=== PATIENT | male | born 1980 | race American Indian/Alaskan Native ===

== ENCOUNTER 2020-07-17 19:28 | Emergency (ER) | payer OTHER ==
[2020-07-17] MEDS ORDERED: ONDANSETRON 4 MG ODT TAB PO ONE (21:43)
[2020-07-17] MEDS ORDERED: FAMOTIDINE 20 MG TAB PO ONE (21:43)
--- NOTE | 2020-07-17 21:53 | Emergency Department Report ---
ED N/V/D HPI - General Chief complaint: Nausea/Vomiting/Diarrhea Stated complaint: PERSISTENT HICCUPS/NAUSEA Source: patient Mode of arrival: Ambulatory Limitations: No Limitations - History of Present Illness Initial comments: Patient is a 40-year-old -Tog[place] male with a history of SLE and interstitial lung disease who presents to the ED with complaint of acute onset persistent intermittent hiccups, nausea and persistent belching for the last 2 days. Patient states that he has been taking dexamethasone the last 5 days for a flare of his SLE. Patient states that the nausea and the hiccups as well as the belching has been persistent and intermittent worse in the last 12 hours. Patient states that he try to take omeprazole with no relief. Patient denies chest pain, shortness of breath, dizziness, syncope, abdominal pain, vomiting, hematemesis, hemoptysis, sore throat, headache, fever and chills, diarrhea or headache and palpitations. MD complaint: nausea, other (dyspepsia; hiccups) -: Sudden, days(s) (2) Description of Vomiting: food contents Associated Abdominal Pain: No Location: epigastric Radiation: none Severity: moderate Pain Scale: 3 Quality: dull Consistency: intermittent Improves with: none Worsens with: none Associated Symptoms: denies other symptoms, nausea/vomiting. denies: myalgias, chest pain, cough, diaphoresis, fever/chills, headaches, loss of appetite, rash, dysuria, shortness of breath, syncope, weakness - Related Data Previous Rx's Medication Instructions Recorded Last Taken Type Albuterol Mdi (or & Nicu Only) 2 puff IH QID PRN #1 inhalation 07/09/18 Unknown Rx [ProAir HFA Inhaler] predniSONE [Deltasone] 20 mg PO QDAY #5 tab 07/09/18 Unknown Rx Famotidine [Pepcid] 20 mg PO BID #60 tablet 07/17/20 Unknown Rx Ondansetron HCl [Zofran] 4 mg PO Q6H PRN #20 tablet 07/17/20 Unknown Rx Pantoprazole [Protonix] 40 mg PO QDAY #30 tablet 07/17/20 Unknown Rx Allergies Allergy/AdvReac Type Severity Reaction Status Date / Time acetaminophen [From Vicodin] Allergy Rash Verified 07/08/18 22:49 diclofenac Allergy Anaphylaxis Verified 07/08/18 22:49 hydrocodone [From Vicodin] Allergy Rash Verified 07/08/18 22:49 ED Review of Systems ROS: Stated complaint: PERSISTENT HICCUPS/NAUSEA Other details as noted in HPI Constitutional: denies: chills, fever Eyes: denies: eye pain, eye discharge, vision change ENT: denies: ear pain, throat pain Respiratory: denies: cough, shortness of breath, wheezing Cardiovascular: denies: chest pain, palpitations Endocrine: no symptoms reported Gastrointestinal: nausea, other (Hiccups and belching). denies: abdominal pain, diarrhea Genitourinary: denies: urgency, dysuria Musculoskeletal: denies: back pain, joint swelling, arthralgia Skin: denies: rash, lesions Neurological: denies: headache, weakness, paresthesias Psychiatric: denies: anxiety, depression Hematological/Lymphatic: denies: easy bleeding, easy bruising ED Past Medical Hx - Past Medical History Previous Medical History?: Yes Additional medical history: lupus, Interstitial Lung disease. neuropathy - Surgical History Past Surgical History?: No - Social History Smoking Status: Never Smoker Substance Use Type: None - Medications Home Medications: Home Medications Medication Instructions Recorded Confirmed Last Taken Type Albuterol Mdi (or & Nicu Only) 2 puff IH QID PRN #1 inhalation 07/09/18 Unknown Rx [ProAir HFA Inhaler] predniSONE [Deltasone] 20 mg PO QDAY #5 tab 07/09/18 Unknown Rx Famotidine [Pepcid] 20 mg PO BID #60 tablet 07/17/20 Unknown Rx Ondansetron HCl [Zofran] 4 mg PO Q6H PRN #20 tablet 07/17/20 Unknown Rx Pantoprazole [Protonix] 40 mg PO QDAY #30 tablet 07/17/20 Unknown Rx ED Physical Exam - General Limitations: No Limitations General appearance: alert, in no apparent distress - Head Head exam: Present: atraumatic, normocephalic, normal inspection - Eye Eye exam: Present: normal appearance, PERRL, EOMI Pupils: Present: normal accommodation - ENT ENT exam: Present: normal exam, normal orophraynx, mucous membranes moist, TM's normal bilaterally, normal external ear exam - Neck Neck exam: Present: normal inspection, full ROM - Respiratory Respiratory exam: Present: normal lung sounds bilaterally. Absent: respiratory distress, wheezes, rales, stridor, chest wall tenderness, decreased breath sounds, prolonged expiratory - Cardiovascular Cardiovascular Exam: Present: regular rate, normal rhythm, normal heart sounds. Absent: systolic murmur, diastolic murmur, rubs, gallop - GI/Abdominal GI/Abdominal exam: Present: soft, normal bowel sounds. Absent: tenderness, guarding, rebound, hyperactive bowel sounds, hypoactive bowel sounds, organomegaly, mass - Extremities Exam Extremities exam: Present: normal inspection, full ROM, normal capillary refill - Back Exam Back exam: Present: normal inspection, full ROM. Absent: tenderness, CVA tenderness (R), CVA tenderness (L), muscle spasm, paraspinal tenderness, vertebral tenderness, rash noted - Neurological Exam Neurological exam: Present: alert, oriented X3, CN II-XII intact, normal gait, reflexes normal - Psychiatric Psychiatric exam: Present: normal affect, normal mood - Skin Skin exam: Present: warm, dry, intact, normal color. Absent: rash ED Course Vital Signs 07/17/20 07/17/20 20:50 23:02 Temperature 98.5 F Pulse Rate 69 60 Respiratory 16 16 Rate Blood Pressure 110/60 Blood Pressure 112/64 [Right] O2 Sat by Pulse 100 99 Oximetry ED Medical Decision Making - Medical Decision Making This is a 40-year-old -Togol[place] male with a history of SLE and interstitial lung disease who presents to the ED with complaint of acute onset persistent intermittent hiccups, nausea and persistent belching for the last 2 days. Patient states that he has been taking dexamethasone the last 5 days for a flare of his SLE. Patient states that the nausea and the hiccups as well as the belching has been persistent and intermittent worse in the last 12 hours. Patient states that he try to take omeprazole with no relief. In the ED, patient is alert and oriented x3 and is not in distress with normal vital signs. Patient was treated with antacids and antiemetics in the ED. On reevaluation, patient symptoms resolved medications. Patient will discharge home on medications and advised to follow-up with his primary care physician in 3 to 5 days for reevaluation or return to the ED immediately if symptoms get worse. - Differential Diagnosis GERD; Dyspepsia; Gastroenteritis; Esophagral spasm; Anxiety Critical care attestation.: If time is entered above; I have spent that time in minutes in the direct care of this critically ill patient, excluding procedure time. ED Disposition Clinical Impression: Hiccups, Nausea and vomiting in adult patient GERD (gastroesophageal reflux disease) Qualifiers: Esophagitis presence: without esophagitis Qualified Code(s): K21.9 - Gastro-esophageal reflux disease without esophagitis Disposition: TO HOME OR SELFCARE Is pt being admited?: No Does the pt Need Aspirin: No Condition: Stable Instructions: Indigestion, [id number], Nausea and Vomiting, Adult, [id number], Gastroesophageal Reflux Disease, Adult, [id number] Additional Instructions: Take medications with food, drink plenty of fluids and follow up with your Primary care physician in 3-5 days for reevaluation. Return to the ED immediately if symptoms get worse. Prescriptions: Famotidine [Pepcid] 20 mg PO BID #60 tablet Pantoprazole [Protonix] 40 mg PO QDAY #30 tablet Ondansetron HCl [Zofran] 4 mg PO Q6H PRN #20 tablet PRN Reason: Nausea Referrals: [facility] [Provider Group] - 7-10 days Time of Disposition: 21:47 Print Language: CZECH
[2020-07-17 23:03] VITALS: BP 112/64
== END 2020-07-17 23:03 | disposition home or self-care (01) ==
LOC: ED 19:28
DX: K21.9 Gastro-esophageal reflux disease without esophagitis (principal); R11.2 Nausea with vomiting, unspecified; R06.6 Hiccough; Z79.899 Other long term (current) drug therapy; Z88.8 Allergy status to other drugs, medicaments and biological substances
CPT/HCPCS: 99282; Q0162

== ENCOUNTER 2020-08-26 19:28 | Emergency (ER) | payer OTHER ==
--- NOTE | 2020-08-26 19:50 | Event Note ---
ED Screening Note Date of service: 08/26/20 Time: 19:35 ED Screening Note: Patient is a 40 yo AA male with a h/o SLE and Interstitial Lung disease who presents to the ED with c/o acute onset persistent diffuse chest pain that radiates to the posterior mid thoracic area intermittently for the last 2 months, worse in the last 1 week. Patient states that the pain gets worse with exertion and any movements or cough. Patient denies dizziness, cough, abdominal pain, nausea, vomiting, diarrhea, headache, traumatic injury or fall and heavy lifting and neck pain, dysuria, hematuria or hemoptysis. This initial assessment/diagnostic orders/clinical plan/treatment(s) is/are subject to change based on patients health status, clinical progression and re- assessment by fellow clinical providers in the ED. Further treatment and workup at subsequent clinical providers discretion. Patient/guardian urged not to elope from the ED as their condition may be serious if not clinically assessed and managed. Initial orders include: EKG, CBC, CMP, Troponin, BNP, CXR
--- NOTE | 2020-08-26 20:23 | XRay Report ---
CHEST 1 VIEW INDICATION: chest pain COMPARISON: 07/09/2018 FINDINGS: Support devices: None Heart: Normal and unchanged Lungs/Pleura: No acute pulmonary or pleural findings. IMPRESSION: 1. No acute disease and no interval change. Signer Name: Brad Bender MD Signed: 08/26/2020 8:19 PM Workstation Name: My Team [id number]
[2020-08-26 20:27] LABS: Hematocrit 44.6 % (35.5-45.6); Hemoglobin 14.7 gm/dl (11.8-15.2); Mean Corpuscular HGB Conc 33 % (32-34); Mean Corpuscular Volume 94 fl (84-94); Platelet Count 280 K/mm3 (140-440); Red Blood Count 4.75 M/mm3 (3.65-5.03); Red Cell Distribution Width 13.6 % (13.2-15.2)
[2020-08-26 20:50] LABS: Alanine Aminotransferase 27 units/L (7-56); Albumin 4.4 g/dL (3.9-5); BUN/Creatinine Ratio 18; Blood Urea Nitrogen 16 mg/dL (9-20); Calcium 9.2 mg/dL (8.4-10.2); Hemolysis Index 30
[2020-08-26] MEDS ORDERED: FAMOTIDINE 20 MG TAB PO ONE (21:05)
[2020-08-26] MEDS ORDERED: SUCRALFATE 1 GM/10 ML ORAL LIQD PO ONE (21:05)
--- NOTE | 2020-08-26 21:06 | Emergency Department Report ---
ED General Adult HPI - General Chief complaint: Chest Pain Stated complaint: CHEST PAIN/BACK PAIN/SOB PUI?: No Time Seen by Provider: 08/26/20 20:41 Source: patient, RN notes reviewed, old records reviewed Mode of arrival: Ambulatory Limitations: No Limitations - History of Present Illness Initial comments: The patient was evaluated in the emergency department for symptoms described in the history of present illness. He/she was evaluated in the context of the global COVID-19 pandemic, which necessitated consideration that the patient might be at risk for infection with the virus that causes COVID-19. Institutional protocols and algorithms that pertain to the evaluation of patients at risk for COVID-19 are in a state of rapid change based on information released by regulatory bodies including the CDC and federal and s berger organizations. These policies and algorithms were followed during the patient's care in the emergency department. Please note that these policies, procedures and recommendations changed on a rapid basis. The patient is a 40-year-old gentleman. He reports a history of lupus, and interstitial lung disease. All of his providers are at [facility]. He does not have a personal or family history of ischemic heart disease, pulmonary embolism, or DVT. The patient presents to the ER today with a complaint of a few months of intermittent chest discomfort. The chest discomfort is described as tightness, sometimes right-sided, sometimes left-sided, sometimes central. It occasionally radiates to the back. There is no vomiting, diaphoresis, and to me, the patient denies exertional shortness of breath. He also specifically denies that the pain radiates to his lower back. The patient denies travel, surgery, leg pain, leg swelling, oral contraceptive use. The patient denies fever, loss of taste or smell, recent aspirin consumption. The patient is ambidextrous, and denies recent trauma, repetitive ranges of motion. He came in today not because his pain is worse, but simply because "I am tired of dealing with it, I want to find out what it is." -: Sudden, week(s), month(s) Location: chest Radiation: back Quality: aching Consistency: intermittent Improves with: none Worsens with: none - Related Data Previous Rx's Medication Instructions Recorded Last Taken Type Albuterol Mdi (or & Nicu Only) 2 puff IH QID PRN #1 inhalation 07/09/18 Unknown Rx [ProAir HFA Inhaler] predniSONE [Deltasone] 20 mg PO QDAY #5 tab 07/09/18 Unknown Rx Famotidine [Pepcid] 20 mg PO BID #60 tablet 07/17/20 Unknown Rx Ondansetron HCl [Zofran] 4 mg PO Q6H PRN #20 tablet 07/17/20 Unknown Rx Pantoprazole [Protonix] 40 mg PO QDAY #30 tablet 07/17/20 Unknown Rx Allergies Allergy/AdvReac Type Severity Reaction Status Date / Time acetaminophen [From Vicodin] Allergy Rash Verified 07/08/18 22:49 celecoxib [From Celebrex] Allergy Anaphylaxis Verified 08/26/20 19:46 hydrocodone [From Vicodin] Allergy Rash Verified 07/08/18 22:49 ED Review of Systems ROS: Stated complaint: CHEST PAIN/BACK PAIN/SOB Other details as noted in HPI Constitutional: denies: fever Eyes: denies: eye discharge ENT: denies: epistaxis Respiratory: denies: cough, shortness of breath, wheezing Cardiovascular: chest pain Gastrointestinal: denies: abdominal pain, vomiting, hematemesis, melena, hematochezia Genitourinary: denies: dysuria Musculoskeletal: denies: back pain Neurological: denies: weakness Hematological/Lymphatic: denies: easy bleeding ED Past Medical Hx - Past Medical History Previous Medical History?: Yes Additional medical history: lupus, Interstitial Lung disease. neuropathy - Surgical History Past Surgical History?: No - Social History Smoking Status: Never Smoker Substance Use Type: None - Medications Home Medications: Home Medications Medication Instructions Recorded Confirmed Last Taken Type Albuterol Mdi (or & Nicu Only) 2 puff IH QID PRN #1 inhalation 07/09/18 Unknown Rx [ProAir HFA Inhaler] predniSONE [Deltasone] 20 mg PO QDAY #5 tab 07/09/18 Unknown Rx Famotidine [Pepcid] 20 mg PO BID #60 tablet 07/17/20 Unknown Rx Ondansetron HCl [Zofran] 4 mg PO Q6H PRN #20 tablet 07/17/20 Unknown Rx Pantoprazole [Protonix] 40 mg PO QDAY #30 tablet 07/17/20 Unknown Rx ED Physical Exam - General Limitations: No Limitations General appearance: alert, in no apparent distress - Head Head exam: Present: atraumatic, normocephalic - Eye Eye exam: Present: normal appearance, EOMI. Absent: nystagmus - ENT ENT exam: Present: normal exam, normal orophraynx, mucous membranes moist, normal external ear exam - Neck Neck exam: Present: normal inspection, full ROM. Absent: tenderness, meningismus - Respiratory Respiratory exam: Present: normal lung sounds bilaterally, chest wall tender ness. Absent: respiratory distress, wheezes, rales, rhonchi, stridor - Cardiovascular Cardiovascular Exam: Present: regular rate, normal rhythm, normal heart sounds. Absent: bradycardia, tachycardia, irregular rhythm, systolic murmur, diastolic murmur, rubs, gallop - GI/Abdominal GI/Abdominal exam: Present: soft. Absent: distended, tenderness, guarding, rebound, rigid, pulsatile mass - Rectal Rectal exam: Present: deferred - Extremities Exam Extremities exam: Present: normal inspection, full ROM, other (2+ pulses noted in the bilateral upper and lower extremities. There is no palpable cord. negative Homans sign. Muscular compartments are soft. The pelvis is stable.). Absent: pedal edema, calf tenderness - Back Exam Back exam: Present: normal inspection, full ROM. Absent: tenderness, CVA tenderness (R), CVA tenderness (L), paraspinal tenderness, vertebral tenderness - Neurological Exam Neurological exam: Present: alert, oriented X3, other (No facial droop. Tongue midline. Extraocular movements intact bilaterally. Facial sensation intact to light touch in V1, V2, V3 distribution bilaterally. 5 and a 5 strength in 4 extremities. Sensation intact to light touch in 4 extremities.). Absent: motor sensory deficit - Psychiatric Psychiatric exam: Present: normal affect, normal mood - Skin Skin exam: Present: warm, dry, intact, normal color. Absent: rash ED Course Vital Signs 08/26/20 19:42 Temperature 98.2 F Pulse Rate 82 Respiratory 17 Rate Blood Pressure 117/56 O2 Sat by Pulse 95 Oximetry ED Medical Decision Making - Lab Data Result diagrams: 08/26/20 19:52 08/26/20 19:52 Vital Signs 08/26/20 19:42 Temperature 98.2 F Pulse Rate 82 Respiratory 17 Rate Blood Pressure 117/56 O2 Sat by Pulse 95 Oximetry Lab Results 08/26/20 08/26/20 Range/Units 19:52 19:52 WBC 5.2 (4.5-11.0) K/mm3 RBC 4.75 (3.65-5.03) M/mm3 Hgb 14.7 (11.8-15.2) gm/dl Hct 44.6 (35.5-45.6) % MCV 94 (84-94) fl MCH 31 (28-32) pg MCHC 33 (32-34) % RDW 13.6 (13.2-15.2) % Plt Count 280 (140-440) K/mm3 [facility] % (Auto) Geophysics Teacher Sodium 138 (137-145) mmol/L Potassium 4.2 (3.6-5.0) mmol/L Chloride 103.3 (98-107) mmol/L Carbon Dioxide 26 (22-30) mmol/L Anion Gap 13 mmol/L BUN 16 (9-20) mg/dL Creatinine 0.9 (0.8-1.3) mg/dL Estimated GFR > 60 ml/min BUN/Creatinine Ratio 18 % Glucose 87 (75-100) mg/dL Calcium 9.2 (8.4-10.2) mg/dL Total Bilirubin 0.30 (0.1-1.2) mg/dL AST 24 (5-40) units/L ALT 27 (7-56) units/L Alkaline Phosphatase 57 (35-129) units/L Troponin T < 0.010 (0.00-0.029) ng/mL NT-Pro-B Natriuret Pep < 5 (0-450) pg/mL Total Protein 7.0 (6.3-8.2) g/dL Albumin 4.4 (3.9-5) g/dL Albumin/Globulin Ratio 1.7 % - EKG Data -: EKG Interpreted by Ar EKG shows normal: sinus rhythm Rate: normal - EKG Data When compared to previous EKG there are: no significant change Interpretation: no acute changes, unchanged when compared t 08/26/20 22:00 EKG today is unchanged from prior EKG from July 2018. Sinus rhythm, 67 bpm, normal axis, borderline high left ventricular voltage, QTC within normal limits, intervals within normal limits. The EKG is not a STEMI. - Radiology Data Radiology results: pending, report reviewed, image reviewed CHEST 1 VIEW INDICATION: chest pain COMPARISON: 07/09/2018 FINDINGS: Support devices: None Heart: Normal and unchanged Lungs/Pleura: No acute pulmonary or pleural findings. IMPRESSION: 1. No acute disease and no interval change. Signer Name: Brad Bender MD Signed: 08/26/2020 7:19 PM Workstation Name: [id number] - Medical Decision Making Differential diagnosis, including but not limited to: GERD, gastritis, hiatal hernia, pneumonia, costochondritis, pericarditis, myocarditis, pleurisy, coronary artery disease Assessment and plan: 40-year-old gentleman, who is not currently tachycardic, tachypneic or hypoxic, who denies DVT and pulmonary embolism risk factors (history of lupus appreciated), who is low risk by Wells criteria for pulmonary embolism, PERC negative, EKG unchanged from prior, troponin negative x1 in the context of weeks/months of symptomatology, acute myocardial infarction is excluded/ruled out as per the [employer] clinical policy, also, given lack of tachycardia, negative troponin, myopericarditis is unlikely. Patient has equal pulses in the upper and lower extremities, no pulsatile abdominal mass, and an unremarkable x-ray of the chest, therefore, aortic d isease is very unlikely. Patient at low risk for major adverse cardiac event as per heart score. Given reproducibility, history and physical, Pneumonia is unlikely given history, physical, and x-ray findings. I find coronary artery disease of significance to be unlikely. As per this institutions policy, procedure, protocol, patient's information is transmitted to [facility] cardiology, whereby patient should be contacted within the next 2 days to arrange close outpatient follow-up Have discussed this plan of care with patient, who verbalized understanding, and is amenable to this plan of care. On multiple repeat evaluations, talking and playing on his cell phone, does not appear to be in any acute distress, and is amenable to outpatient follow-up. Critical care attestation.: If time is entered above; I have spent that time in minutes in the direct care of this critically ill patient, excluding procedure time. ED Disposition Clinical Impression: History of chest pain Disposition: DC-01 TO HOME OR SELFCARE Is pt being admited?: No Does the pt Need Aspirin: No Condition: Stable Instructions: Nonspecific Chest Pain, Adult Additional Instructions: Please continue current outpatient medications. Please follow-up with a split leather mosser within the next 3 to 5 days. Please return to the emergency room right away with new pain, worsened pain, migration of pain, projectile vomiting, change in mental status, confusion, inability to tolerate liquid feeds, new, worsened or different symptoms not present on the initial emergency room evaluation Patient's contact information was transmitted to [facility] cardiology, to arrange close outpatient follow-up. Dr. Ciera Lopes is a split leather mosser in this practice, and the cardiology group should be reaching out to the patient within the next day or 2 to arrange outpatient follow-up. However, we do recommend that the patient contact the listed group on his own, to confirm outpatient appointment. Alternatively, the patient may also elect to follow-up with [facility] cardiology, such as Dr. Barajas, if he so chooses Referrals: HADLEY LOPES MD [Staff Physician] - 3-5 Days ADAN BARAJAS MD [Staff Physician] - 3-5 Days [facility] [Provider Group] - 3-5 Days Forms: Work/School Release Form(ED)
[2020-08-26 22:09] VITALS: BP 115/72
[2020-08-26 22:27] LABS: Total Cells Counted 100
[2020-08-26 22:28] LABS: Platelet Estimate Consistent w Auto
== END 2020-08-26 22:10 | disposition home or self-care (01) ==
LOC: ED 19:28
DX: R07.89 Other chest pain (principal); Z79.899 Other long term (current) drug therapy; Z88.8 Allergy status to other drugs, medicaments and biological substances
CPT/HCPCS: 36415; 71046; 80053; 83880; 84484; 85007; 85025; 93005

== ENCOUNTER 2020-10-16 11:25 | Emergency (ER) | payer SELFPAY ==
[2020-10-16 11:39] VITALS: BP 121/58
--- NOTE | 2020-10-16 12:22 | Event Note ---
ED Screening Note ED Screening Note: right sided CP that began a couple of days ago states he has pain with movement and sitting up straight and bending over no fever no n/v/d no radiation of the pain no SOB pmhx lupus, interstitial lung disease, neuropathy, HLD non smoker no recent surgery, no recent travel This initial assessment/diagnostic orders/clinical plan/treatment(s) is/are subject to change based on patients health status, clinical progression and re- assessment by fellow clinical providers in the ED. Further treatment and workup at subsequent clinical providers discretion. Patient/guardian urged not to elope from the ED as their condition may be serious if not clinically assessed and managed. Initial orders include: cp protocol
--- NOTE | 2020-10-16 12:57 | XRay Report ---
CHEST 2 VIEWS INDICATION / CLINICAL INFORMATION: Chest Pain. COMPARISON: 08/26/2020 FINDINGS: SUPPORT DEVICES: None. HEART / MEDIASTINUM: No significant abnormality. LUNGS / PLEURA: Stable chronic linear scarring in the right lung base. No acute findings. ADDITIONAL FINDINGS: No significant additional findings. IMPRESSION: 1. No acute findings. Signer Name: Kael Polo MD Signed: 10/16/2020 12:52 PM Workstation Name: [id number]
[2020-10-16 13:38] LABS: Basophils # (Auto) 0.1 K/mm3 (0.0-0.1); Basophils % (Auto) 1.2 % (0.0-1.8); Eosinophils # (Auto) 0.2 K/mm3 (0.0-0.4); Eosinophils % (Auto) 4.4 % (0.0-4.3); Hematocrit 44.3 % (35.5-45.6); Hemoglobin 14.9 gm/dl (11.8-15.2); Lymphocytes # (Auto) 1.3 K/mm3 (1.2-5.4); Lymphocytes % (Auto) 25.8 % (13.4-35.0); Mean Corpuscular HGB Conc 34 % (32-34); Mean Corpuscular Volume 94 fl (84-94); Monocytes # (Auto) 0.7 K/mm3 (0.0-0.8); Monocytes % (Auto) 14.7 % (0.0-7.3); Platelet Count 233 K/mm3 (140-440); Red Blood Count 4.72 M/mm3 (3.65-5.03)
[2020-10-16 14:01] LABS: Alanine Aminotransferase 37 units/L (7-56); Albumin 4.3 g/dL (3.9-5); BUN/Creatinine Ratio 15; Blood Urea Nitrogen 18 mg/dL (9-20); Calcium 8.9 mg/dL (8.4-10.2); Hemolysis Index 20
[2020-10-16] MEDS ORDERED: ACETAMINOPHEN 500 MG TAB PO ONE (20:57)
[2020-10-16] MEDS ORDERED: predniSONE 20 MG TAB PO ONE (20:57)
--- NOTE | 2020-10-16 21:29 | Emergency Department Report ---
ED Chest Pain HPI - General Chief Complaint: Chest Pain Stated Complaint: CHEST PAIN Time Seen by Provider: 10/16/20 12:20 Source: patient Mode of arrival: Ambulatory Limitations: No Limitations - History of Present Illness Initial Comments: Patient is a 40-year-old -[place] male with a history of lupus , interstitial lung disease and peripheral neuropathy who presents for chest pain radiating to right flank for 2 days, patient denies shortness of breath, there is no wheezing, there is no stridor, states dry cough. Pain is exacerbated by movement and deep inspiration. Pain is relieved by rest. Patient has not attempted [id number] NSAIDs as needed for pain. Patient denies fall injury or trauma, patient denies smoking. There are no other exacerbating or relieving factors. MD Complaint: chest pain Severity scale (0 -10): 3 - Related Data Previous Rx's Medication Instructions Recorded Last Taken Type Albuterol Mdi (or & Nicu Only) 2 puff IH QID PRN #1 inhalation 07/09/18 Unknown Rx [ProAir HFA Inhaler] predniSONE [Deltasone] 20 mg PO QDAY #5 tab 07/09/18 Unknown Rx Famotidine [Pepcid] 20 mg PO BID #60 tablet 07/17/20 Unknown Rx Ondansetron HCl [Zofran] 4 mg PO Q6H PRN #20 tablet 07/17/20 Unknown Rx Pantoprazole [Protonix] 40 mg PO QDAY #30 tablet 07/17/20 Unknown Rx Acetaminophen [Acetaminophen TAB] 1,000 mg PO Q6HR PRN #30 tablet 10/16/20 Unknown Rx predniSONE [Deltasone] 40 mg PO DAILY 5 Days #10 tablet 10/16/20 Unknown Rx Allergies Allergy/AdvReac Type Severity Reaction Status Date / Time acetaminophen [From Vicodin] Allergy Rash Verified 07/08/18 22:49 celecoxib [From Celebrex] Allergy Anaphylaxis Verified 08/26/20 19:46 hydrocodone [From Vicodin] Allergy Rash Verified 07/08/18 22:49 Heart Score - HEART Score History: Slightly suspicious EKG: Normal Age: < 45 Risk factors: No known risk factors Troponin: < normal limit HEART Score: 0 - EKG Read Time Time EKG Completed: 11:30 EKG Read Time: 11:40 ED Review of Systems ROS: Stated complaint: CHEST PAIN Other details as noted in HPI Constitutional: denies: chills, fever Eyes: denies: eye pain, eye discharge, vision change ENT: denies: ear pain, throat pain Respiratory: cough. denies: shortness of breath, stridor, wheezing Cardiovascular: chest pain. denies: orthopnea Endocrine: no symptoms reported Gastrointestinal: denies: abdominal pain, nausea, vomiting, diarrhea Genitourinary: denies: urgency, dysuria Musculoskeletal: back pain (right flank pain ) Skin: denies: rash, lesions Neurological: denies: headache, weakness, paresthesias, vertigo Psychiatric: denies: anxiety, depression Hematological/Lymphatic: denies: easy bleeding, easy bruising ED Past Medical Hx - Past Medical History Previous Medical History?: Yes Additional medical history: lupus, Interstitial Lung disease. neuropathy - Surgical History Past Surgical History?: No - Social History Smoking Status: Never Smoker Substance Use Type: None - Medications Home Medications: Home Medications Medication Instructions Recorded Confirmed Last Taken Type Albuterol Mdi (or & Nicu Only) 2 puff IH QID PRN #1 inhalation 07/09/18 Unknown Rx [ProAir HFA Inhaler] predniSONE [Deltasone] 20 mg PO QDAY #5 tab 07/09/18 Unknown Rx Famotidine [Pepcid] 20 mg PO BID #60 tablet 07/17/20 Unknown Rx Ondansetron HCl [Zofran] 4 mg PO Q6H PRN #20 tablet 07/17/20 Unknown Rx Pantoprazole [Protonix] 40 mg PO QDAY #30 tablet 07/17/20 Unknown Rx Acetaminophen [Acetaminophen TAB] 1,000 mg PO Q6HR PRN #30 tablet 10/16/20 Unknown Rx predniSONE [Deltasone] 40 mg PO DAILY 5 Days #10 tablet 10/16/20 Unknown Rx ED Physical Exam - General Limitations: No Limitations General appearance: alert, in no apparent distress - Head Head exam: Present: atraumatic, normocephalic - Eye Eye exam: Present: normal appearance, EOMI Pupils: Present: normal accommodation - ENT ENT exam: Present: mucous membranes moist - Neck Neck exam: Present: normal inspection, full ROM. Absent: tenderness - Respiratory Respiratory exam: Present: normal lung sounds bilaterally, chest wall tenderness (bilat anterior chest wall tenderness to palpation no crepitus no erythema no swelling). Absent: respiratory distress, wheezes, rales, rhonchi, stridor, acce ssory muscle use, prolonged expiratory - Cardiovascular Cardiovascular Exam: Present: regular rate, normal rhythm, normal heart sounds. Absent: systolic murmur, diastolic murmur, rubs, gallop - GI/Abdominal GI/Abdominal exam: Present: soft, normal bowel sounds. Absent: distended, tenderness, guarding, rebound, rigid, bruit, hernia - Rectal Rectal exam: Present: deferred - Extremities Exam Extremities exam: Present: normal inspection, full ROM, normal capillary refill. Absent: tenderness - Back Exam Back exam: Present: normal inspection, full ROM, CVA tenderness (R). Absent: CVA tenderness (L) - Neurological Exam Neurological exam: Present: alert, oriented X3, CN II-XII intact, normal gait - Psychiatric Psychiatric exam: Present: normal affect, normal mood - Skin Skin exam: Present: warm, dry, intact, normal color. Absent: rash ED Course Vital Signs 10/16/20 11:38 Temperature 98.5 F Pulse Rate 79 Respiratory 20 Rate Blood Pressure 121/58 O2 Sat by Pulse 98 Oximetry FORREST score - Forrest Score Age > 65: (0) No Aspirin use within the Past 7 Days: (0) No 3 or more CAD Risk Factors: (0) No 2 or more Angina events in past 24 hrs: (0) No Known CAD with more than 50% Stenosis: (0) No Elevated Cardiac Markers: (0) No ST Deviation Greater than 0.5mm: (0) No FORREST Score: 0 ED Medical Decision Making - Lab Data Result diagrams: 10/16/20 12:52 10/16/20 12:52 Labs 10/16/20 10/16/20 10/16/20 12:52 12:52 16:27 WBC 4.9 RBC 4.72 Hgb 14.9 Hct 44.3 MCV 94 MCH 32 MCHC 34 RDW 13.0 L Plt Count 233 Lymph % (Auto) 25.8 [facility] % (Auto) 14.7 H Eos % (Auto) 4.4 H Baso % (Auto) 1.2 Lymph # (Auto) 1.3 [facility] # (Auto) 0.7 Eos # (Auto) 0.2 Baso # (Auto) 0.1 Seg Neutrophils % 53.9 Seg Neutrophils # 2.6 Sodium 138 Potassium 4.7 Chloride 102.3 Carbon Dioxide 27 Anion Gap 13 BUN 18 Creatinine 1.2 Estimated GFR > 60 BUN/Creatinine Ratio 15 Glucose 82 Calcium 8.9 Total Bilirubin 0.30 AST 23 ALT 37 Alkaline Phosphatase 60 Troponin T < 0.010 < 0.010 Total Protein 7.1 Albumin 4.3 Albumin/Globulin Ratio 1.5 - EKG Data EKG shows normal: sinus rhythm, axis, intervals, QRS complexes, ST-T waves Rate: normal - EKG Data When compared to previous EKG there are: previous EKG unavailable Interpretation: normal EKG NSR no ST Elevated AK , interpreted by ED attending. 10/16/20 22:02 - Radiology Data Radiology results: report reviewed, image reviewed FINDINGS: SUPPORT DEVICES: None. HEART / MEDIASTINUM: No significant abnormality. LUNGS / PLEURA: Stable chronic linear scarring in the right lung base. No acute findings. ADDITIONAL FINDINGS: No significant additional findings. IMPRESSION: 1. No acute findings. Signer Name: Kael Polo MD Signed: 10/16/2020 12:52 PM Workstation Name: [id number] Transcribed By: JUAN Dictated By: Kael Polo MD Electronically Authenticated By: Kael Polo MD Signed Date/Time: 10/16/20 125 DD/ 125 TD/TT: - Medical Decision Making Chest x-raynormal, EKG normal sinus rhythm no ST elevated AK, EKG interpreted by ED attending. Troponin less than 0.01x2 heart score is 0 FORREST score is 0 , there is no productive cough no wheezing no stridor, chest wall pain is improved with meds given in ED patient will be DC'd to home in stable condition at this time with prescriptions. Patient will follow up with his primary care doctor in 2 to 3 days. Patient given instructions to return to ED should symptoms worsen. Patient verbalized agreement and understanding with same.. Critical care attestation.: If time is entered above; I have spent that time in minutes in the direct care of this critically ill patient, excluding procedure time. ED Disposition Clinical Impression: Chest pain Qualifiers: Chest pain type: unspecified Qualified Code(s): R07.9 - Chest pain, unspecified Disposition: DC-01 TO HOME OR SELFCARE Is pt being admited?: No Does the pt Need Aspirin: No Condition: Stable Instructions: Nonspecific Chest Pain, Adult Additional Instructions: take medications as prescribed ,follow up with your doctor in 2-3 days, return to emergency if symptoms worsen. Prescriptions: Acetaminophen [Acetaminophen TAB] 1,000 mg PO Q6HR PRN #30 tablet PRN Reason: Pain predniSONE [Deltasone] 40 mg PO DAILY 5 Days #10 tablet Referrals: BILLY VICKERS MD [Staff Physician] - 3-5 Days ALY LUCIO MD [Staff Physician] - 3-5 Days Forms: Work/School Release Form(ED) Time of Disposition: 21:42
--- NOTE | 2020-10-17 17:10 | Electrocardiograph Report ---
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
== END 2020-10-16 22:12 | disposition home or self-care (01) ==
LOC: ED 11:25
DX: R07.89 Other chest pain (principal); Z79.899 Other long term (current) drug therapy; Z88.8 Allergy status to other drugs, medicaments and biological substances
CPT/HCPCS: 36415; 71046; 80053; 84484; 85025; 93005; 99284; J7512